=== PATIENT | female | born 1985 | race Caucasian/White ===

== ENCOUNTER 2021-09-28 09:39 | Day surgery (SDC) | payer OTHER ==
[2021-09-27 12:48] VITALS: BMI 24.9
[~2021-09-28 09:39] MED LIST: LACTATED RINGERS 1,000 ML IV SCH; LIDOCAINE 1% (10MG/ML) FOR IV START INTRADERMA PRN
[2021-09-28 09:54] VITALS: TEMP 97.8
[2021-09-28] MEDS ORDERED: PROPOFOL 10 MG/ML 20 ML VIAL IV ONE (10:15)
--- NOTE | 2021-09-28 10:26 | P.PCN ---
Date of Procedure: 09/28/21 Procedure(s) Performed: BRIEF HISTORY: Patient is a 36-year-old, pleasant, female scheduled for an upper endoscopy as a part of evaluation of globus sensation her throat area, atypical chest pain and occasional heartburn for the last 1 year duration. She tried Prilosec 20 mg daily for a year with no help. Recently was started on Protonix 40 mg daily.. PROCEDURE PERFORMED: Esophagogastroduodenoscopy with biopsy. PREOPERATIVE DIAGNOSIS: Globus sensation/atypical chest pain and heartburn of 1 year duration. IV sedation per anesthesia. PROCEDURE: After informed consent was obtained, the patient was brought into the endoscopy unit. IV sedation was administered by Anesthesia under continuous monitoring. Initially the Olympus GIF-140 video endoscope was inserted into the mouth. Esophagus intubated without any difficulty. It was gradually advanced into the stomach and duodenum and carefully examined. The bulb and the second part of the duodenum appeared normal. The scope at this time was withdrawn to the stomach, adequately insufflated with air, and upon careful examination, mucosa of the antrum had scattered areas of erythema in the prepyloric area which was biopsied. The body, cardia and the fundus appeared normal. The scope was then withdrawn into the esophagus. The GE junction was located at 41 cm from the incisors. The esophagus appeared normal. There were no erosions or ulcerations seen and biopsies were done from the distal esophagus and the patient tolerated the procedure well. IMPRESSION: 1. Normal-appearing esophagus with no evidence of esophagitis or esophageal stricture. 2. Mild antral gastritis. RECOMMENDATIONS: The findings of this examination were discussed with the patient as well as a family. She was advised to follow with the biopsy results. Since she is doing better on Protonix 40 mg daily she was advised to continue the same and follow antireflux measures.
[2021-09-28 11:21] VITALS: BP 113/76; PULSE 62; RESP 18
== END 2021-09-28 11:30 | disposition home or self-care (01) ==
LOC: ORWHC2ENDO 09:39
PROVIDERS: ATTEND Internal Medicine Gastroenterology
DX: K29.50 Unspecified chronic gastritis without bleeding (principal); K20.0 Eosinophilic esophagitis; Z79.899 Other long term (current) drug therapy
CPT/HCPCS: 81025; 88305; 43239; J2704

== ENCOUNTER → 2022-04-03 | Outpatient (CLI) | payer OTHER ==
--- NOTE | 2022-04-03 11:33 | XR ---
EXAMINATION TYPE: XR cervical spine comp DATE OF EXAM: 04/03/2022 10:44 AM INDICATION: Patient age:Female; 37 years old; Reason for study: [id number],[id number] CERVICALGIA,DYSPHAGIA; COMPARISON: None TECHNIQUE: The cervical spine was imaged in frontal, lateral, odontoid and bilateral oblique. FINDINGS: The osseous structures show normal alignment without evidence of an acute fracture. The intervertebr al disk spaces are preserved. Pedicles are intact. Soft tissues are within normal limits. The odont oid appears intact. IMPRESSION: No fracture or dislocation.
== END | disposition home or self-care (01) ==
LOC: RADXRYALE 10:32
PROVIDERS: ATTEND Physician Assistant Medical
DX: M54.2 Cervicalgia (principal); R13.10 Dysphagia, unspecified
CPT/HCPCS: 72050

== ENCOUNTER → 2024-11-06 | Outpatient (CLI) | payer OTHER ==
--- NOTE | 2024-11-06 15:19 | MM ---
Reason for Exam: Screening (asymptomatic). Baseline mammogram. Patient History: Menarche at age 11. First Full-Term at age 21. Maternal grandmother had ovarian cancer, age 65. Last menstrual period: 10/30/2024 Risk Values: Kylah 5 year model risk: 0.5%. NCI Lifetime model risk: 9.0%. Prior Study Comparison: Patient's first Mammogram. Tissue Density: The breasts are heterogeneously dense, which may obscure small masses. Findings: Analyzed By CAD. There is no suspicious group of microcalcifications or suspicious mass in either breast. Overall Assessment: Negative, BI-RAD 1 Management: Screening Mammogram of both breasts in 1 year. . Patient should continue monthly self-breast exams. A clinical breast exam by your physician is recommended on an annual basis. This exam should not preclude additional follow-up of suspicious palpable abnormalities. Note on Kylah scores and lifetime risk: 1. A Kylah score greater than 3% is considered moderate risk. If this is the case, consider specialist referral to assess eligibility for a risk reducing agent. 2. If overall lifetime risk for the development of breast cancer is 20% or higher, the patient may qualify for future screening with alternating mammogram and breast MRI. [facility], , 11/06/2024 3:15 PM. Electronically signed and approved by: Dashawn Dinh M.D.
== END | disposition home or self-care (01) ==
LOC: RADMAMWWP 13:52
PROVIDERS: ATTEND Family Medicine
DX: Z12.31 Encounter for screening mammogram for malignant neoplasm of breast (principal); R92.333 Mammographic heterogeneous density, bilateral breasts
CPT/HCPCS: 77067

== ENCOUNTER → 2024-11-12 | Outpatient (CLI) | payer OTHER ==
--- NOTE | 2024-11-12 15:57 | US ---
EXAMINATION TYPE: US pelvic complete DATE OF EXAM: 11/12/2024 COMPARISON: NONE CLINICAL INDICATION: Female, 39 years old with history of R10.2 PELVIC AND PERINEAL PAIN; Patient sta jorge having ovarian pain that radiates to perineum. TECHNIQUE: Transabdominal (TA). Transabdominal grayscale sonographic images of the pelvis were acquired. Doppler imaging: Not performed. FINDINGS: Date of LMP: 10/23/2024, EXAM MEASUREMENTS: Uterus: 9.7 x 5.3 x 5.0 cm Endometrial Stripe: 0.7 cm Right Ovary: 3.0 x 2.6 x 2.2 cm Left Ovary: 3.5 x 2.4 x 1.7 cm 1. Uterus: Anteverted Posterior midline hypoechoic area = 1.2 x 1.2 x 0.9 cm 2. Endometrium: wnl 3. Right Ovary: dominant follicle 4. Left Ovary: follicles seen 5. Bilateral Adnexa: wnl 6. Posterior cul-de-sac: no free fluid IMPRESSION: 1. No evidence for acute process. 2. Uterine fibroid [facility], , 11/12/2024 3:54 PM
== END | disposition home or self-care (01) ==
LOC: RADUSWWP 14:25
PROVIDERS: ATTEND Family Medicine
DX: D25.9 Leiomyoma of uterus, unspecified (principal)
CPT/HCPCS: 76856